=== PATIENT | male | born 1960 | race Two or more races ===

== ENCOUNTER 2016-11-09 10:55 | Observation (INO) | payer SELFPAY ==
[2016-11-09 12:20] LABS: BASOPHILS 0.1 % (0.0-2.0); EOSINOPHILS 0.1 % (0-7); HEMATOCRIT 45.4 % (42.0-54.0); HEMOGLOBIN 15.5 g/dL (13.5-17.5); IMMATURE GRANULOCYTES 0.2 % (0-5); MCH 30.3 pg (26.0-34.0); MCHC 34.1 g/dL (31.0-37.0); MCV 88.7 fL (80.0-100.0); NEUTROPHILS 86.6 % (40-80); PLATELET COUNT 149 10x3/uL (130-400); RBC 5.12 10x6/uL (4.20-6.10); RDW 12.8 % (11.5-14.5); WBC 11.2 10x3/uL (4.8-10.8)
[2016-11-09 12:31] LABS: ALBUMIN 4.3 g/dL (3.4-5.0); ALKALINE PHOSPHATASE 111 U/L (46-116); ALT (SGPT) 43 U/L (10-68); BILIRUBIN - TOTAL 0.87 mg/dL (0.2-1.3); CALC OSMOLALITY 284 mosm/kg (275-300); CARBON DIOXIDE 27.3 mmol/L (21.0-32.0); CHLORIDE - SERUM 103 mmol/L (98-107); CREATININE - SERUM 0.8 mg/dL (0.6-1.3); GLUCOSE 132 mg/dL (74-106); POTASSIUM - SERUM 3.7 mmol/L (3.5-5.1); PROTEIN - SERUM 8.6 g/dL (6.4-8.2); SODIUM 141 mmol/L (136-145); UREA NITROGEN 17 mg/dL (7-18); eGFR NON AFRICAN AMERICAN > 90 mL/min (90-120)
[2016-11-09 13:05] LABS: APTT 29.2 SECONDS (22.8-39.4); INR 1.08 (0.85-1.17); PROTIME 13.9 SECONDS (11.6-15.0)
[2016-11-09 16:30] VITALS: BP 143/90
[2016-11-09 17:54] LABS: HEMOGLOBIN A1C 5.6 % (4.8-6.0)
--- NOTE | 2016-11-09 19:15 | NUR ---
BEDSIDE REPORT RECEIVED AND CARE OF PT ASSUMED. PT LYING IN SEMI MASTERS'S POSITION VISITING WITH FAMILY MEMBERS. IV IN RIGHT AC PATENT WITH NS INFUSING AT 75 ML / HR. TELEMETRY IN USE AND PT READING SR AT THIS ASSESSMENT. WILL MONITOR FOR NEEDS.
[2016-11-09 20:00] VITALS: BP 138/88
--- NOTE | 2016-11-09 22:46 | NUR ---
HS MEDICATIONS GIVEN TO INCLUDE NORCO 10 PO PER REQUEST FOR HEADACHE. WILL MONITOR FOR EFFECTIVENESS. SIDE RAILS UP X2 FOR SAFETY. FAMILY MEMBERS ARE AT BEDSIDE.
--- NOTE | 2016-11-10 02:30 | NUR ---
COLLECTED URINE AND DELIVERED TO LAB FOR UDS.
[2016-11-10 02:50] LABS: UDS - AMPHET NEGATIVE QUAL (NEGATIVE); UDS - BARB NEGATIVE QUAL (NEGATIVE); UDS - BENZO NEGATIVE QUAL (NEGATIVE); UDS - COCAINE NEGATIVE QUAL (NEGATIVE); UDS - METH NEGATIVE QUAL (NEGATIVE); UDS - OPIATE POSITIVE QUAL (NEGATIVE); UDS - PCP NEGATIVE QUAL (NEGATIVE); UDS - THC NEGATIVE QUAL (NEGATIVE)
--- NOTE | 2016-11-10 05:00 | NUR ---
PT VOMITED INTO TRASH CAN AFTER COUGHING EPISODE. FEELING BETTER NOW.
[2016-11-10 05:40] LABS: BASOPHILS 0 % (0.0-2.0); EOSINOPHILS 0 % (0-7); HEMATOCRIT 41.6 % (42.0-54.0); HEMOGLOBIN 14.1 g/dL (13.5-17.5); IMMATURE GRANULOCYTES 0.1 % (0-5); LYMPHOCYTES 6.9 % (15-50); MCH 30.3 pg (26.0-34.0); MCHC 33.9 g/dL (31.0-37.0); MCV 89.5 fL (80.0-100.0); MEAN PLATELET VOLUME 11.3 fL (7.4-10.4); PLATELET COUNT 140 10x3/uL (130-400); RBC 4.65 10x6/uL (4.20-6.10); RDW 12.8 % (11.5-14.5)
[2016-11-10 06:01] LABS: ALBUMIN 3.8 g/dL (3.4-5.0); ALKALINE PHOSPHATASE 95 U/L (46-116); ALT (SGPT) 40 U/L (10-68); BILIRUBIN - TOTAL 0.57 mg/dL (0.2-1.3); CALCIUM 8.6 mg/dL (8.5-10.1); CARBON DIOXIDE 25.8 mmol/L (21.0-32.0); CHLORIDE - SERUM 105 mmol/L (98-107); CREATININE - SERUM 0.6 mg/dL (0.6-1.3); GLUCOSE 148 mg/dL (74-106); PROTEIN - SERUM 7.5 g/dL (6.4-8.2); SODIUM 141 mmol/L (136-145); eGFR NON AFRICAN AMERICAN > 90 mL/min (90-120)
[2016-11-10 06:07] LABS: CALC OSMOLALITY 283 mosm/kg (275-300); UREA NITROGEN 12 mg/dL (7-18)
[2016-11-10 07:59] VITALS: BP 140/97
[2016-11-10] MEDS ORDERED: KEPPRA500 MG PO (11:37)
[2016-11-10] MEDS ORDERED: MEDROL DOSE PACK4 MG PO (11:37)
[2016-11-10] MEDS ORDERED: HYDROCODONE-APA1 TAB PO (11:37)
[2016-11-10 12:21] VITALS: BP 139/91
--- NOTE | 2016-11-10 16:03 | NUR ---
DISCHARGE INSTRUCTIONS WITH PT AND FAMILY,STATES UNDERSTANDING.IV DCD CATH INTACT.
--- NOTE | 2016-11-10 16:32 | NUR ---
LEFT UNIT VIA WHEELCHAIR,FAMILY AT SIDE.
== END 2016-11-10 16:32 | disposition home or self-care (01) ==
LOC: D.ER 10:55 → OBSVTIME 15:00 → D.MS 15:00
PROVIDERS: Emergency Medicine; ADMIT Family Medicine Adult Medicine
DX: S06.6X0A Traumatic subarachnoid hemorrhage without loss of consciousness, initial encounter (principal); S06.2X0A Diffuse traumatic brain injury without loss of consciousness, initial encounter; W19.XXXA Unspecified fall, initial encounter; D72.829 Elevated white blood cell count, unspecified

== ENCOUNTER 2016-11-14 17:53 | Emergency (ER) | payer SELFPAY ==
[~2016-11-14 17:53] MED LIST: HYDROCODONE-APA1 TAB PO; KEPPRA500 MG PO; MEDROL DOSE PACK4 MG PO
[2016-11-14 18:46] LABS: BASOPHILS 0.1 % (0.0-2.0); EOSINOPHILS 0.3 % (0-7); HEMATOCRIT 52.9 % (42.0-54.0); HEMOGLOBIN 18.2 g/dL (13.5-17.5); IMMATURE GRANULOCYTES 0.4 % (0-5); LYMPHOCYTES 8.4 % (15-50); MCH 30.8 pg (26.0-34.0); MCHC 34.4 g/dL (31.0-37.0); MCV 89.5 fL (80.0-100.0); MEAN PLATELET VOLUME 10.8 fL (7.4-10.4); MONOCYTES 7.4 % (2-11); NEUTROPHILS 83.4 % (40-80); PLATELET COUNT 183 10x3/uL (130-400); RBC 5.91 10x6/uL (4.20-6.10); RDW 12.6 % (11.5-14.5); WBC 14.9 10x3/uL (4.8-10.8)
[2016-11-14 19:30] LABS: ALBUMIN 4.4 g/dL (3.4-5.0); ALKALINE PHOSPHATASE 120 U/L (46-116); ALT (SGPT) 37 U/L (10-68); BILIRUBIN - TOTAL 0.79 mg/dL (0.2-1.3); CALC OSMOLALITY 269 mosm/kg (275-300); CALCIUM 9.3 mg/dL (8.5-10.1); CARBON DIOXIDE 29.2 mmol/L (21.0-32.0); CHLORIDE - SERUM 94 mmol/L (98-107); CREATININE - SERUM 0.7 mg/dL (0.6-1.3); GLUCOSE 119 mg/dL (74-106); POTASSIUM - SERUM 4.7 mmol/L (3.5-5.1); PROTEIN - SERUM 8.8 g/dL (6.4-8.2); SODIUM 134 mmol/L (136-145); UREA NITROGEN 16 mg/dL (7-18); eGFR NON AFRICAN AMERICAN > 90 mL/min (90-120)
== END 2016-11-14 21:48 | disposition home or self-care (01) ==
LOC: D.ER 17:53
PROVIDERS: Family Medicine
DX: S09.90XA Unspecified injury of head, initial encounter (principal); W19.XXXA Unspecified fall, initial encounter; Y93.89 Activity, other specified; Y92.89 Other specified places as the place of occurrence of the external cause; R51 Headache; R41.0 Disorientation, unspecified

== ENCOUNTER → 2016-11-24 09:51 | Outpatient (CLI) | payer SELFPAY | END | disposition home or self-care (01) | LOC: D.CT 09:51 | DX: I60.9 Nontraumatic subarachnoid hemorrhage, unspecified (principal) ==